=== PATIENT | female | born 1995 | race Caucasian/White ===

== ENCOUNTER 2017-05-03 23:55 | Emergency (ER) | payer SELFPAY ==
[~2017-05-03] VITALS: Ht 170.2 cm; Wt 45.0 kg
--- NOTE | 2017-05-04 00:01 | ERD ---
ER Documentation Chief Complaint Date/Time DATE: 05/04/17 TIME: 00:00 Chief Complaint HPI 89-year-old female who comes in for drug use. She says use meth but feels like her mouth got spiked with another drug. Denies suicidal homicidal ideation. Denies auditory or visual hallucinations. Denies any other current complaints. ROS All systems reviewed and are negative except as per history of present illness. Physical Exam Physical Exam Const: [] Head: Atraumatic Eyes: Normal Conjunctiva ENT: Normal External Ears, Nose and Mouth. Neck: Full range of motion..~ No meningismus. Resp: Clear to auscultation bilaterally Cardio: Regular rate and rhythm, no murmurs Abd: Soft, non tender, non distended. Normal bowel sounds Skin: No petechiae or rashes Back: No midline or flank tenderness Ext: No cyanosis, or edema Neur: Awake and alert Psych: Normal Mood and Affect Procedures/MDM Medical decision-makin-year-old female who comes in essentially for drug use. At this point clinically stable. No signs of overdose or intoxication. Patient will be discharged home. Alert and oriented 4 with goal oriented speech and good decision-making capacity. Departure Diagnosis: Primary Impression: Drug use Condition: Stable SUYAPA CAN May 04, 2017 00:00
[2017-05-04 00:09] VITALS: Ht 170.2 cm; Wt 45.0 kg
== END 2017-05-04 00:09 | disposition home or self-care (01) ==
LOC: E/R 23:55
DX: F15.90 Other stimulant use, unspecified, uncomplicated (principal)
CPT/HCPCS: 99282

== ENCOUNTER 2017-05-17 08:54 | Emergency (ER) | payer OTHER ==
[~2017-05-17] VITALS: Ht 165.1 cm; Wt 60.0 kg
[2017-05-17 09:02] VITALS: Ht 165.1 cm; Wt 60.0 kg
[2017-05-17 09:24] LABS: ADD SCAN DIFF NO; BASOPHILS % 0.5 % (0.0-2.0); EOSINOPHILS # 0.1 10^3/ul (0.0-0.5); EOSINOPHILS % 1.4 % (0.0-7.0); HEMATOCRIT 40.2 % (37.0-47.0); HEMOGLOBIN 14.3 g/dl (12.0-16.0); LYMPHOCYTES # 2.5 10^3/ul (0.8-2.9); LYMPHOCYTES % 32.7 % (15.0-51.0); MEAN CORPUSCULAR HEMOGLOBIN 30.8 pg (29.0-33.0); MEAN CORPUSCULAR HGB CONC 35.6 g/dl (32.0-37.0); MEAN CORPUSCULAR VOLUME 86.6 fl (82.0-101.0); MEAN PLATELET VOLUME 8.3 fl (7.4-10.4); MONOCYTE # 0.8 10^3/ul (0.3-0.9); MONOCYTES % 10.4 % (0.0-11.0); NEUTROPHIL # 4.2 10^3/ul (1.6-7.5); NEUTROPHILS % 54.6 % (39.0-77.0); PLATELET COUNT 344 10^3/UL (140-415); RED BLOOD COUNT 4.64 10^6/ul (4.20-5.40); RED CELL DISTRIBUTION WIDTH 12.3 % (11.5-14.5); WHITE BLOOD COUNT 7.7 10^3/ul (4.8-10.8)
[2017-05-17] MEDS ORDERED: LORAZEPAM 1 MG TAB PO ONE ×2 (09:30→12:30)
[2017-05-17 09:43] LABS: ACETAMINOPHEN < 10.0 ug/ml (10.0-30.0); ALANINE AMINOTRANSFERASE 109 IU/L (13-69); ALBUMIN 4.9 g/dl (3.3-4.9); ALBUMIN/GLOBULIN RATIO 1.53; ALKALINE PHOSPHATASE 66 IU/L (42-121); ANION GAP 9 (8-16); ASPARTATE AMINO TRANSFERASE 69 IU/L (15-46); BILIRUBIN,INDIRECT 0.2 mg/dl (0-1.1); BILIRUBIN,TOTAL 0.2 mg/dl (0.2-1.3); BLOOD UREA NITROGEN 8 mg/dl (7-20); CALCIUM 9.3 mg/dl (8.4-10.2); CARBON DIOXIDE 30 mmol/L (21-31); CHLORIDE 103 mmol/L (97-110); CREATININE 0.84 mg/dl (0.44-1.00); ETHANOL < 10.0 mg/dl; GLUCOSE 95 mg/dl (70-220); POTASSIUM 3.3 mmol/L (3.5-5.1); SALICYLATE < 1.0 mg/dl (5.0-30.0); SODIUM 139 mmol/L (135-144); TOTAL PROTEIN 8.1 g/dl (6.1-8.1)
[2017-05-17] MEDS ORDERED: OLANZAPINE 5 MG TAB PO ONE (12:30)
--- NOTE | 2017-05-17 12:36 | PSY ---
Date/Time of Note Date/Time of Note DATE: 05/17/17 TIME: 12:36 Psychiatric Subjective Eval Consent Pt consented to telemedicine: Yes Subjective Evaluation Patient location: emergency Chief Complaint: suicidal ideation Medical history Problems Medical Problems: (1) Drug use Status: Acute Psychiatric Objective Eval Mental Status Examination: Laboratory Results Laboratory Tests Test 05/17/17 09:12 White Blood Count 7.710^3/ul Red Blood Count 4.6410^6/ul Hemoglobin 14.3g/dl Hematocrit 40.2% Mean Corpuscular Volume 86.6fl Mean Corpuscular Hemoglobin 30.8pg Mean Corpuscular Hemoglobin Concent 35.6g/dl Red Cell Distribution Width 12.3% Platelet Count 42293^3/UL Mean Platelet Volume 8.3fl Neutrophils % 54.6% Lymphocytes % 32.7% Monocytes % 10.4% Eosinophils % 1.4% Basophils % 0.5% Nucleated Red Blood Cells % 0.0/100WBC Neutrophils # 4.210^3/ul Lymphocytes # 2.510^3/ul Monocytes # 0.810^3/ul Eosinophils # 0.110^3/ul Basophils # 0.010^3/ul Nucleated Red Blood Cells # 0.010^3/ul Sodium Level 139mmol/L Potassium Level 3.3mmol/L Chloride Level 103mmol/L Carbon Dioxide Level 30mmol/L Anion Gap 9 Blood Urea Nitrogen 8mg/dl Creatinine 0.84mg/dl Glucose Level 95mg/dl Calcium Level 9.3mg/dl Total Bilirubin 0.2mg/dl Direct Bilirubin 0.00mg/dl Indirect Bilirubin 0.2mg/dl Aspartate Amino Transf (AST/SGOT) 69IU/L Alanine Aminotransferase (ALT/SGPT) 109IU/L Alkaline Phosphatase 66IU/L Total Protein 8.1g/dl Albumin 4.9g/dl Globulin 3.20g/dl Albumin/Globulin Ratio 1.53 Salicylates Level < 1.0mg/dl Acetaminophen Level < 10.0ug/ml Ethyl Alcohol Level < 10.0mg/dl Assessment Additional comments: IDENTIFYING INFORMATION: 21 year old Female patient who is currently located at the hospital and for whom psychiatric consultation was requested. SOURCES OF INFORMATION: The patient who appears to be unreliable and the medical records; the nursing staff. CHIEF COMPLAINT: "it's a funny story". HISTORY OF PRESENT ILLNESS: The patient was interviewed via telemedicine in the presence of and under the supervision of nursing staff of the hospital. The consent to conducting this interview via telemedicine was obtained by the nursing staff at the hospital. OCTAVIO Fitch reports that the patient presented with SI with plan to hang herself or cut her wrist. Admits to using heroin and meth. Is not on a hold. Dr. Cuenca reports that the pt admitted to SI, and that she attempted to overdose on drugs last night. The pt is not able to answer most questions appropriately due to psychosis. The pt is asking the current provider how do people hold babies?. She reports that she is practicing how to hold a baby because her friend is . The patient denies using alcohol heavily or regularly. The patient denies using any other substances. PAST MEDICAL HISTORY: Unable to assess as the patient was not able to cooperate with the interview at this time. CURRENT MEDICATIONS: none. ALLERGIES TO MEDICATIONS: NKDA. SOCIAL HISTORY: Unable to assess as the patient was not able to cooperate with the interview at this time. LABORATORY TESTS: CMP with a potassium of 3.3, AST 69, ALT 109, CBC unremarkable, alcohol was not detected. REVIEW OF SYSTEMS: Unable to assess as the patient was not able to cooperate with the interview at this time. MENTAL STATUS EXAMINATION: General Appearance and Behavior: restless, appears to be responding to internal stimuli, uncooperative with most of the interview, distant with the current interviewer, makes poor eye contact, poorly groomed, increased psychomotor activity, no abnormal movements noted. Speech: Normal rate, regular rhythm, normal latency, normal volume. Flow of thought: tangential, illogical, not goal-directed. Content of thought: the patient appears to be responding to internal stimuli, she was not able to answer questions appropriately at this time, + suicidal ideation; no homicidal ideation. Mood: "OK". Affect: agitated, decreased range of reactivity. Attention: normal based on the interview. Insight: poor. Judgment: poor. Memory: Unable to assess as the patient was not able to cooperate with the interview at this time. Sensorium: alert and oriented to person, unable to assess as the patient was not able to cooperate with the interview at this time. ASSESSMENT: The patient's presentation and history are consistent with the diagnosis of unspecified psychotic disorder, stimulant use disorder, opiate use disorder. The patient presents with psychotic symptoms, as well as suicidal ideation, in the context of possible stimulant and opiate use. The patient also reported that she tried to kill herself by overdosing last night. [place] I: Unspecified psychotic disorder, stimulant use disorder, opioid use disorder. [place] II: Deferred. [place] III: see PMH. [place] IV: social stressors. [place] V: GAF:10. PLAN: - Medication management: Would start lorazepam 1 mg by mouth twice a day as needed for agitation. Would start Zyprexa 5 mg po bid prn agitation. Would start haloperidol 5 mg IM PRN severe agitation q4 hours. Would start diphenhydramine 50 mg IM PRN severe agitation q4 hours. Would start lorazepam 2 mg IM PRN severe agitation q4 hours Will defer to the inpatient psychiatry team for other medication changes. - Labs: please check hCG. - Psychotherapy: Provided supportive psychotherapy and psychoeducation. - Disposition: Would recommend involuntary admission to the inpatient psychiatric unit given the severity of the patient's psychiatric condition and the fact that the patient is an imminent danger to self and/or others so long as the patient has been cleared medically for admission to psychiatry. Inpatient psychiatric admission is at this time the least restrictive environment where the patient can receive the psychiatric care that is needed. Would place on suicide precautions. Discussed about the above plan with Dr. Cuenca. YAEL BARFIELD MD May 17, 2017 12:36
[2017-05-17] MEDS ORDERED: POTASSIUM CHLORIDE (SR) 20 MEQ TAB PO STA ×2 (12:46→18:25)
--- NOTE | 2017-05-17 12:46 | ERA ---
ER Documentation Chief Complaint Date/Time DATE: 05/17/17 TIME: 12:32 Chief Complaint suicidal ideation HPI This is a 21-year-old female presents to the emergency room for evaluation after an attempted overdose. The patient stated that she took heroin last night to kill herself. She states that she has been feeling depressed. The patient denies any homicidal ideation. Patient was brought in by EMS and EMS states that they did not have to give Narcan. This patient was brought in for further evaluation. ROS All systems reviewed and are negative except as per history of present illness. Medications Home Meds Unable to Obtain Active Prescriptions or Reported Meds PMhx/Soc Medical and Surgical Hx: pt denies Medical Hx, pt denies Surgical Hx Hx Alcohol Use: Yes Hx Substance Use: Yes Hx Tobacco Use: Yes Smoking Status: Never smoker Physical Exam Vitals Vital Signs Date Time Temp Pulse Resp B/P Pulse Ox O2 Delivery O2 Flow Rate FiO2 05/17/17 09:02 98.4 107 19 141/94 99 Physical Exam Const: Disheveled appearance, tearful Head: Atraumatic Eyes: Normal Conjunctiva ENT: Normal External Ears, Nose and Mouth. Neck: Full range of motion..~ No meningismus. Resp: Clear to auscultation bilaterally Cardio: Regular rate and rhythm, no murmurs Abd: Soft, non tender, non distended. Normal bowel sounds Skin: No petechiae or rashes Back: No midline or flank tenderness Ext: No cyanosis, or edema Neur: Awake and alert Psych: Normal Mood and Affect Result Diagram: 05/17/1712 05/17/17 0912 Results 24 hrs Laboratory Tests Test 05/17/17 09:12 White Blood Count 7.710^3/ul Red Blood Count 4.6410^6/ul Hemoglobin 14.3g/dl Hematocrit 40.2% Mean Corpuscular Volume 86.6fl Mean Corpuscular Hemoglobin 30.8pg Mean Corpuscular Hemoglobin Concent 35.6g/dl Red Cell Distribution Width 12.3% Platelet Count 38451^3/UL Mean Platelet Volume 8.3fl Neutrophils % 54.6% Lymphocytes % 32.7% Monocytes % 10.4% Eosinophils % 1.4% Basophils % 0.5% Nucleated Red Blood Cells % 0.0/100WBC Neutrophils # 4.210^3/ul Lymphocytes # 2.510^3/ul Monocytes # 0.810^3/ul Eosinophils # 0.110^3/ul Basophils # 0.010^3/ul Nucleated Red Blood Cells # 0.010^3/ul Sodium Level 139mmol/L Potassium Level 3.3mmol/L Chloride Level 103mmol/L Carbon Dioxide Level 30mmol/L Anion Gap 9 Blood Urea Nitrogen 8mg/dl Creatinine 0.84mg/dl Glucose Level 95mg/dl Calcium Level 9.3mg/dl Total Bilirubin 0.2mg/dl Direct Bilirubin 0.00mg/dl Indirect Bilirubin 0.2mg/dl Aspartate Amino Transf (AST/SGOT) 69IU/L Alanine Aminotransferase (ALT/SGPT) 109IU/L Alkaline Phosphatase 66IU/L Total Protein 8.1g/dl Albumin 4.9g/dl Globulin 3.20g/dl Albumin/Globulin Ratio 1.53 Salicylates Level < 1.0mg/dl Acetaminophen Level < 10.0ug/ml Ethyl Alcohol Level < 10.0mg/dl Current Medications Medications (Trade) Dose Ordered Sig/[place] Route PRN Reason Start Time Stop Time Status Last Admin Dose Admin Lorazepam (Ativan) 1 mg ONCE ONCE PO 05/17/17 09:30 05/17/17 09:31 DC 05/17/17 09:13 Procedures/MDM This 21-year-old female presents to the ER for possible drug overdose. This patient stated she wants to kill herself by overdosing on heroin. She also states that she has been taking methamphetamines. This patient did state that she wanted to kill herself however she denies any homicidal ideation. Lab work was obtained and the patient was evaluated by tele-psych physician who recommended a 50 150s hold. The patient was given 2 mg of Ativan p.o. and 5 mg of Zyprexa p.o. she will be transferred once she is placed on a hold and has an accepting facility. Smoking Cessation Therapy: Pt. was lectured for greater than 3 minutes on the health risks of continued smoking and the benefits of cessation. Departure Diagnosis: Primary Impression: Suicidal ideation Additional Impressions: Heroin abuse Tobacco abuse Tobacco abuse counseling Condition: Stable MYLESEddieDIMA GREEN May 17, 2017 12:46
[2017-05-17] MEDS ORDERED: LORAZEPAM 2 MG INJ IM ONE ×2 (16:30→18:30)
[2017-05-17 17:36] LABS: ADD UMIC YES; UR ASCORBIC ACID NEGATIVE (NEGATIVE); UR BILIRUBIN (Dip) NEGATIVE (NEGATIVE); UR BLOOD (Dip) NEGATIVE (NEGATIVE); UR CLARITY CLOUDY (CLEAR); UR COLOR AMBER (YELLOW); UR GLUCOSE (Dip) NEGATIVE (NEGATIVE); UR KETONES (Dip) 1+ mg/dL (NEGATIVE); UR LEUKOCYTE ESTERASE (Dip) TRACE Leu/ul (NEGATIVE); UR MUCUS MANY /HPF (NONE SEEN); UR NITRITE (Dip) NEGATIVE (NEGATIVE); UR RBC 6 /HPF (0-5); UR SPECIFIC GRAVITY (Dip) 1.023 (1.003-1.030); UR SQUAMOUS EPITHELIAL CELL MANY /HPF (FEW); UR TOTAL PROTEIN (Dip) 1+ mg/dl (NEGATIVE); UR UROBILINOGEN (Dip) 1+ mg/dL (NEGATIVE)
[2017-05-17] MEDS ORDERED: DIPHENHYDRAMINE 50 MG INJ IM ONE (18:30)
[2017-05-17] MEDS ORDERED: HALOPERIDOL 5 MG INJ IM ONE (18:30)
[2017-05-17 18:49] LABS: BARBITURATES Positive (NEGATIVE)
[2017-05-17 18:51] LABS: BENZODIAZEPINES Negative (NEGATIVE); CANNABINOIDS Negative (NEGATIVE); COCAINE Positive (NEGATIVE); OPIATES Negative (NEGATIVE)
--- NOTE | 2017-05-17 19:08 | EN ---
Date/Time of Note Date/Time of Note DATE: 05/17/17 TIME: 19:02 ER Progress Note DATE: 05/17/17 TIME: 18:20. 21-year-old female with unspecified psychosis, stimulant and opiate use disorder , evaluated by tele-psychiatry, recommended admission and patient awaiting evaluation. Worsening agitation and hallucinations. Not improved after Ativan 1 mg given at 16:30. As per the recommendation of Dr Everett. Haldol 5 mg , Ativan 1 mg and Benadryl 50 mg IM were given with good results. LEONARDO ORTIZ MD May 17, 2017 19:07
[2017-05-17 19:24] VITALS: TEMP 98.1
[2017-05-18 03:00] VITALS: BP 111/69; PULSE 74; RESP 17
== END 2017-05-18 04:07 ==
LOC: E/R 08:54
DX: R45.851 Suicidal ideations (principal); F11.10 Opioid abuse, uncomplicated; F17.200 Nicotine dependence, unspecified, uncomplicated; Z71.6 Tobacco abuse counseling
CPT/HCPCS: 80053; 80306; 80307; 81001; 84703; 85025; J1200; J1630; J2060; 36415; 96372